=== PATIENT | female | born 1950 | race Two or more races ===

== ENCOUNTER 2018-10-07 12:48 | Emergency (ER) | payer OTHER ==
[2018-10-07 12:55] VITALS: BP 125/68; PULSE 95; TEMP 98.5; BMI 28.0
--- NOTE | 2018-10-07 14:06 | PDOC ---
History of Present Illness - General Chief Complaint: Shortness of Breath Stated Complaint: SOB Time Seen by Provider: 10/07/18 13:29 History Source: Patient Exam Limitations: No Limitations - History of Present Illness Initial Comments: 10/07/18 14:00 HISTORY OF PRESENT ILLNESS: 67-year-old woman past medical history of borderline diabetes, hypertension, cardiac stent 2 presents emergency departments with 1 week of moist productive cough. Patient denies any fevers or chills. Patient reports her cough is worse at night while laying down when she wakes up in the morning is more productive followed by extended periods of no cough. Patient denies any shortness of breath or chest pain. No recent travel or sick contacts. PAST MEDICAL HISTORY: see hpi SURGICAL HISTORY: Denies ALLERGIES: No known drug allergies REVIEW OF SYSTEMS General/Constitutional: Denies fever or chills. Denies weakness, weight change. HEENT: Denies change in vision. Denies ear pain or discharge. Denies sore throat. Cardiovascular: Denies chest pain or shortness of breath. Respiratory: Moist productive cough. Denies wheezing, or hemoptysis. Gastrointestinal: Denies nausea, vomiting, diarrhea or constipation. Denies rectal bleeding. Genitourinary: Denies dysuria, frequency, or change in urination. Musculoskeletal: Denies joint or muscle swelling or pain. Denies neck or back pain. Skin and breasts: Denies rash or easy bruising. Neurologic: Denies headache, vertigo, loss of consciousness, or loss of sensation. Psychiatric: Denies depression or anxiety. Endocrine: Denies increased thirst. Denies abnormal weight change. Hematologic/Lymphatic: Denies anemia, easy bleeding, or history of blood clots. Allergic/Immunologic: Denies hives or skin allergy. Denies latex allergy. PHYSICAL EXAM General Appearance: Well-appearing, appropriately dressed. No apparent distress , no intoxication. HEENT: EOMI, PERRLA, normal ENT inspection, normal voice, TMs normal, pharynx normal. No conjunctival pallor. No photophobia, scleral icterus. Sinus pressure. Nasal congestion. Cobblestoning in the posterior oropharynx Neck: Supple. Trachea midline. No tenderness, rigidity, carotid bruit, stridor , lymphadenopathy, or thyromegaly. Respiratory/Chest: Lungs CTAB. No shortness of breath, chest tenderness, respiratory distress, accessory muscle use. No crackles, rales, rhonchi, stridor , wheezing, dullness Cardiovascular: RRR. S1, S2. No JVD, murmur, bradycardia, tachycardia. Vascular Pulses: Dorsalis-Pedis (R): 2+, Dorsalis-Pedis (L): 2+ Past History - Past Medical History Allergies/Adverse Reactions: Allergies Allergy/AdvReac Type Severity Reaction Status Date / Time No Known Allergies Allergy Verified 10/07/18 12:54 Home Medications: Ambulatory Orders Benzonatate [Tessalon Pearls -] 200 mg PO TID #180 cap 10/07/18 Clopidogrel Bisulfate [Clopidogrel] 75 mg PO DAILY 10/07/18 Lisinopril [Prinivil -] 40 mg PO DAILY 10/07/18 Losartan Potassium [Cozaar -] 50 mg PO DAILY 10/07/18 Metformin HCl [Glucophage] 500 mg PO BID 10/07/18 Simvastatin 20 mg PO DAILY 10/07/18 COPD: No CHF: No HTN: Yes - Suicide/Smoking/Psychosocial Hx Smoking History: Never smoked Have you smoked in the past 12 months: No Information on smoking cessation initiated: No Hx Alcohol Use: No Drug/Substance Use Hx: No *Physical Exam - Vital Signs Last Vital Signs Temp Pulse Resp BP Pulse Ox 98.5 F 95 H 16 125/68 100 10/07/18 12:51 10/07/18 12:51 10/07/18 12:51 10/07/18 12:51 10/07/18 12:51 Moderate Sedation - Procedure Monitoring Vital Signs: Procedure Monitoring Vital Signs Temperature 98.5 F 10/07/18 12:51 Pulse Rate 95 H 10/07/18 12:51 Respiratory Rate 16 10/07/18 12:51 Blood Pressure 125/68 10/07/18 12:51 O2 Sat by Pulse Oximetry (%) 100 10/07/18 12:51 ED Treatment Course - RADIOLOGY Radiology Studies Ordered: Category Date Time Status CHEST PA & LAT [RAD] Stat Radiology 10/07/18 14:00 Ordered Medical Decision Making - Medical Decision Making 10/07/18 14:03 A/P: 67-year-old woman with cough for one week. Nasal congestion present Sinus tenderness noted Cobblestoning noted in the posterior oropharynx Respirations even and unlabored Speaking full sentences Lungs clear to auscultation bilaterally Physical exam is consistent with upper respiratory illness but given patient's comorbidities old had a chest x-ray to rule out pneumonia. 10/07/18 15:05 Chest x-rays read by Dr. Osborn: No evidence of active pulmonary disease. I will discharge the patient home with symptomatic treatment for an upper respiratory infection. I discussed the physical exam findings, ancillary test results and final diagnoses with the patient. I answered all of the patient's questions. The patient was satisfied with the care received and felt comfortable with the discharge plan and treatment plan. The patient will call their primary care physician within 24 hours to arrange follow-up and will return to the Emergency Department with any new, persistent or worsening symptoms. *DC/Admit/Observation/Transfer Diagnosis at time of Disposition: URI (upper respiratory infection) Qualifiers: URI type: unspecified viral URI Qualified Code(s): J06.9 - Acute upper respiratory infection, unspecified - Discharge Dispostion Disposition: HOME Condition at time of disposition: Stable Decision to Admit order: No - Prescriptions Prescriptions: Benzonatate [Tessalon Pearls -] 200 mg PO TID #180 cap - Referrals Referrals: Nba Warren MD [Primary Care Provider] - - Patient Instructions Additional Instructions: Rest, drink lots of fluids: Teas, water, soups, Pedialyte Saltwater gargles Steamy showers/seem to face break up mucus Avoid contact with others until fevers and cough resolved Lots of handwashing and good hygiene Continue [id number] medications for symptomatic relief Tylenol or Motrin for fever and pain Followup with private physician in one to 2 days as needed Return to emergency department for worsened symptoms, fevers, dehydration - Post Discharge Activity
== END 2018-10-07 15:07 | disposition home or self-care (01) ==
LOC: JERFT 12:48
DX: J06.9 Acute upper respiratory infection, unspecified (principal); I10 Essential (primary) hypertension
CPT/HCPCS: 71046-TC-FY; 99281-25

== ENCOUNTER 2019-11-22 08:36 | Day surgery (SDC) | payer OTHER ==
[~2019-11-22 08:36] MED LIST: ACETAMINOPHEN 325 MG TABLET (FP) PO PRN
[2019-11-22 08:52] VITALS: TEMP 97.8; BMI 28.3
[2019-11-22] MEDS ORDERED: CYCLOPENTOLATE HCL 1% OPHTH SOLN 2 ML BOTTLE ONE (09:31)
[2019-11-22] MEDS ORDERED: OFLOXACIN 0.3% OPHTHALMIC SOLUTION 5 ML BOTTLE ONE (09:31)
[2019-11-22] MEDS ORDERED: PHENYLEPHRINE 2.5% OPHTH SOLN 15 ML BOTTLE ONE (09:31)
[2019-11-22] MEDS ORDERED: TROPICAMIDE 1% OPHTH SOLN 15 ML BOTTLE ONE (09:32)
[2019-11-22] MEDS ORDERED: KETOROLAC TROMETHAMINE 0.5% EYE DROP 1 DROP DROPS ONE (09:33)
[2019-11-22] MEDS: PHENYLEPHRINE 2.5% OPHTH SOLN 15 ML BOTTLE OP SCH ×3 (09:40→10:00)
[2019-11-22] MEDS: TROPICAMIDE 1% OPHTH SOLN 15 ML BOTTLE OP SCH ×3 (09:40→10:00)
[2019-11-22] MEDS: CYCLOPENTOLATE HCL 1% OPHTH SOLN 2 ML BOTTLE OP SCH ×3 (09:40→10:00)
[2019-11-22] MEDS: KETOROLAC TROMETHAMINE 0.5% EYE DROP 1 DROP DROPS OP SCH ×3 (09:40→10:00)
[2019-11-22] MEDS: OFLOXACIN 0.3% OPHTHALMIC SOLUTION 5 ML BOTTLE OP SCH ×2 (09:40→10:00)
[2019-11-22] MEDS ORDERED: TRYPAN BLUE 0.5 ML DISP.SYRIN ONE (10:19)
[2019-11-22] MEDS ORDERED: EPINEPHrine/PF 1 MG/1 ML (1:1,000) AMPULE ONE (10:19)
[2019-11-22] MEDS ORDERED: LIDOCAINE HCL/PF 1% SDV 5ML VIAL ONE (10:19)
[2019-11-22] MEDS ORDERED: CHONDROITIN SU A/HYALUR SOD 1 KIT ONE (10:20)
[2019-11-22] MEDS ORDERED: MIDAZOLAM HCL 2 MG/2 ML SINGLE DOSE VIAL ONE (10:51)
[2019-11-22] MEDS ORDERED: TETRACAINE 0.5% HCL 0.6ML DROPPER.BOTTLE OD ONE (10:59)
[2019-11-22] MEDS ORDERED: LIDOCAINE HCL 1% PRESERVATIVE FREE - 30ML VIAL IO ONE (11:00)
[2019-11-22] MEDS ORDERED: POVIDONE-IODINE 5% OPHTHALMIC PREP 30 ML SOLUTION OD ONE (11:00)
[2019-11-22] MEDS ORDERED: EPINEPHrine/PF 1 MG/1 ML (1:1,000) AMPULE SQ ONE (11:03)
[2019-11-22] MEDS ORDERED: TRYPAN BLUE 0.5 ML DISP.SYRIN IO ONE (11:05)
[2019-11-22] MEDS ORDERED: CHONDROITIN SU A/HYALUR SOD 1 KIT IO ONE (11:15)
[2019-11-22 13:37] VITALS: BP 153/86; PULSE 77
--- NOTE | 2019-11-23 11:45 | OP ---
DATE OF OPERATION: 11/22/2019 PREOPERATIVE DIAGNOSIS: Mature cataract, right eye. POSTOPERATIVE DIAGNOSIS: Mature cataract, right eye. PROCEDURE: Phacoemulsification of right cataract with posterior chamber intraocular lens implantation. The lens used [id number], 23.0 diopter power, serial number [id number]. ANESTHESIA: Topical MAC. COMPLICATIONS: None. DESCRIPTION OF PROCEDURE: The patient was brought into the operating room and correctly identified along with the operative site as well as correct intraocular lens rosales. She was then prepped and draped in the usual sterile fashion including 5% Betadine solution in the conjunctival sac and an eyelid drape. An eyelid speculum was then placed into the right eye. The eye was inspected, and a dense cataract with a poor reflex was noted. A paracentesis port was created, and 0.5 mL of 1% preservative free Lidocaine was given intracamerally. Beneath an air bubble, the capsule then was stained with trypan blue. Viscoelastic was injected to inflate the anterior chamber, and a continuous circular capsulorrhexis was performed. The nucleus was then hydrodissected with BSS, and phacoemulsification was used to remove the cataract. The cataract was noted to be rather dense, and at times, the procedure was halted to fill the eye with Viscoat to protect the corneal endothelium. After much effort, the cataract was successfully broken into 4 quadrants and each quadrant removed. The amount of phacoemulsification time was noted to be elevated, and care was made to perform the phacoemulsification in the iris plane, away from the corneal endothelium. At the end of quadrant removal, a dense epinuclear plate was noted. The decision was then made to change to irrigation/aspiration to remove the epinucleus. The epinucleus was noted to be thick as well, and this took a significant amount of time. However, the epinucleus was removed without complication. There was no cortical material remaining. Viscoelastic was then injected to inflate the capsular bag, and the lens injected into the capsular bag. The wounds were stromal hydrated, and there was noted to be a small amount of leaking in the temporal clear corneal wound. A 10-0 nylon suture was placed in it. A second paracentesis port was created, and using bimanual irrigation and aspiration, the viscoelastic was aspirated from the eye. At the end of the procedure, all wounds were tested and found to be watertight. No further suture was placed. The intraocular lens was noted to be well centered, covered the anterior capsular border. Topical vancomycin given. The eye patched and shielded, and the patient discharged from the operating room in a stable condition. BRAYAN MEJIA M.D. [id number]
== END 2019-11-22 13:20 | disposition home or self-care (01) ==
LOC: JASU-SURG 08:36
PROVIDERS: ATTEND Ophthalmology
PROC: 08RJ3JZ Replacement of Right Lens with Synthetic Substitute, Percutaneous Approach (ICD-10-PCS; principal; 2019-11-22 11:00)
DX: H25.091 Other age-related incipient cataract, right eye (principal)
CPT/HCPCS: 82962

== ENCOUNTER 2019-12-06 09:26 | Day surgery (SDC) | payer OTHER ==
[2019-12-04 16:30] VITALS: BMI 28.3
[2019-12-06] MEDS ORDERED: OFLOXACIN 0.3% OPHTHALMIC SOLUTION 5 ML BOTTLE ONE (09:53)
[2019-12-06] MEDS ORDERED: PHENYLEPHRINE 2.5% OPHTH SOLN 15 ML BOTTLE ONE (09:53)
[2019-12-06] MEDS ORDERED: CYCLOPENTOLATE HCL 1% OPHTH SOLN 2 ML BOTTLE ONE (09:53)
[2019-12-06] MEDS ORDERED: TROPICAMIDE 1% OPHTH SOLN 15 ML BOTTLE ONE (09:54)
[2019-12-06] MEDS: OFLOXACIN 0.3% OPHTHALMIC SOLUTION 5 ML BOTTLE OP SCH ×3 (10:00→10:15)
[2019-12-06] MEDS: CYCLOPENTOLATE HCL 1% OPHTH SOLN 2 ML BOTTLE OP SCH ×3 (10:00→10:15)
[2019-12-06] MEDS: PHENYLEPHRINE 2.5% OPHTH SOLN 15 ML BOTTLE OP SCH ×3 (10:00→10:15)
[2019-12-06] MEDS: KETOROLAC TROMETHAMINE 0.5% EYE DROP 1 DROP DROPS OP SCH ×3 (10:00→10:15)
[2019-12-06] MEDS: TROPICAMIDE 1% OPHTH SOLN 15 ML BOTTLE OP SCH ×3 (10:00→10:15)
[2019-12-06] MEDS ORDERED: KETOROLAC TROMETHAMINE 0.5% EYE DROP 1 DROP DROPS ONE (10:06)
[2019-12-06] MEDS ORDERED: MIDAZOLAM HCL 2 MG/2 ML SINGLE DOSE VIAL ONE (11:06)
[2019-12-06] MEDS ORDERED: TETRACAINE 0.5% OPHTH SOLN 2 ML BOTTLE TP ONE (11:12)
[2019-12-06] MEDS ORDERED: POVIDONE-IODINE 5% OPHTHALMIC PREP 30 ML SOLUTION ONE (11:13)
[2019-12-06] MEDS ORDERED: TETRACAINE 0.5% OPHTH SOLN 2 ML BOTTLE ONE (11:13)
[2019-12-06] MEDS ORDERED: EPINEPHrine/PF 1 MG/1 ML (1:1,000) AMPULE ONE (11:13)
[2019-12-06] MEDS ORDERED: LIDOCAINE HCL/PF 1% SDV 5ML VIAL ONE (11:13)
[2019-12-06] MEDS ORDERED: LIDOCAINE HCL 1% PRESERVATIVE FREE - 30ML VIAL IO ONE (11:22)
[2019-12-06] MEDS ORDERED: CHONDROITIN SU A/HYALUR SOD 1 KIT IO ONE (11:23)
[2019-12-06] MEDS ORDERED: EPINEPHrine/PF 1 MG/1 ML (1:1,000) AMPULE SQ ONE (11:33)
[2019-12-06 12:14] VITALS: TEMP 98
[2019-12-06 13:25] VITALS: BP 140/77; PULSE 80
--- NOTE | 2019-12-06 21:53 | SPEC ---
DATE OF OPERATION: 12/06/2019 OPERATION: Phacoemulsification with posterior chamber intraocular lens implantation, left eye. Lens used [id number], 23.5 Diopter power, Serial No. [id number]. PREOPERATIVE DIAGNOSIS: Cataract, left eye. POSTOPERATIVE DIAGNOSIS: Cataract, left eye. SURGEON: Brayan Mejia M.D. ANESTHESIA: Topical MAC. COMPLICATIONS: None. PROCEDURE: The patient was brought to the operating room and correctly identified along with the operative site and the correct intraocular lens rosales. The patient was then prepped and draped in the usual sterile fashion including 5% Betadine solution in the conjunctival sac and an eyelid drape. An eyelid speculum was then placed in the eye. A paracentesis port was created and approximately 0.5 mL of preservative free Lidocaine was then injected into the eye. Viscoelastic was then injected to inflate the anterior chamber. A temporal clear corneal wound was created. A continuous circular capsulorrhexis was performed. The nucleus was then hydrodissected with BSS and removed with phacoemulsification. The remaining cortical material was irrigated and aspirated. Viscoelastic was injected to inflate the capsular bag and the intraocular lens was then implanted into the capsular bag. The remaining Viscoelastic was irrigated and aspirated from the eye. The IOL was noted to be well centered and completely covered by the anterior capsulorrhexis. Topical vancomycin was placed and the eye patched and shielded. All wounds were tested and found to be watertight. No suture was placed. The eye was then shielded. The patient was then discharged from the operating room in stable condition. BRAYAN MEJIA M.D. [id number]
== END 2019-12-06 12:50 | disposition home or self-care (01) ==
LOC: JASU-SURG 09:26
PROVIDERS: ATTEND Ophthalmology
PROC: 08RK3JZ Replacement of Left Lens with Synthetic Substitute, Percutaneous Approach (ICD-10-PCS; principal; 2019-12-06 10:00)
DX: H26.9 Unspecified cataract (principal); I10 Essential (primary) hypertension; E11.9 Type 2 diabetes mellitus without complications; Z79.84 Long term (current) use of oral hypoglycemic drugs
CPT/HCPCS: 82962